=== PATIENT | female | born 1990 | race Caucasian/White ===

== ENCOUNTER 2020-01-22 09:43 | Emergency (ER) | payer MEDICAID, SELFPAY ==
[2020-01-22 09:47] VITALS: BP 158/114; PULSE 108; RESP 17; TEMP 36.6; O2SAT 99; BMI 45.3
--- NOTE | 2020-01-22 10:06 | NURSING ---
NO OLD EKGS
--- NOTE | 2020-01-22 10:10 | RAD_ITS ---
STUDY: X-RAY CHEST REASON FOR EXAM: Female, 29 years old. BACK AND CHEST PAIN SINCE WEDNESDAY -- LEFT ABD PAIN RADIATING UP TO SHOULDER AND NECK STARTING THIS AM TECHNIQUE: Single AP portable view of the chest. COMPARISON: None. FINDINGS: The lungs are clear and expanded. There is no demonstrated pleural abnormality. Normal size heart. Normal mediastinum and henri. Normal visualized pulmonary arteries. Normal visualized aortic arch and descending thoracic aorta. Normal visualized thoracic spine. Normal visualized ribs, clavicles, and shoulders. There is no demonstrated abnormality of the visualized soft tissue structures of the upper abdomen. RAD/Chest 1 View (Portable) IMPRESSION: Normal x-ray examination of the chest. Electronically Signed: Tolu Kern, at 11:05 EST , Service support ,
--- NOTE | 2020-01-22 10:10 | EKG12_ITS ---
Test Reason : CP Blood Pressure : / mmHG Vent. Rate : 082 BPM Atrial Rate : 082 BPM P-R Int : 156 ms QRS Dur : 092 ms QT Int : 370 ms P-R-T Axes : 043 018 014 degrees QTc Int : 432 ms Normal sinus rhythm Normal ECG Confirmed by OLIVE BALES, RAMESH ([id number]), manager editorial MIHAI PADILLA ([id number]) on 01/23/2020 1:02:08 PM Referred By: BB Confirmed By:RAMESH SCHAEFER MD
[2020-01-22 10:32] LABS: Absolute Lymphocyte Count 2.15 X10^3/uL (0.83-4.51); Absolute Neutrophil Count 4.8 X10^3/uL (2.0-7.7); Basophil# 0.03 X10^3/uL; Basophil% 0.4 % (0-1); Eosinophil# 0.14 X10^3/uL; Eosinophils% 1.8 % (0-5); Hematocrit 41.6 % (37-47); Hemoglobin 14.9 g/dL (12.0-15.0); Lymphocyte # 2.15 X10^3/ul (4.0); Lymphocyte % 28.2 % (19-41); Mean Corp Hgb Conc 35.8 g/dL (32-36); Mean Corpuscular Volume 89.3 fL (81-99); Mean Platelet Vol. 9.3 fl (6.2-12.0); Monocyte# 0.44 X10^3/uL; Monocyte% 5.8 % (0-10); NRBC Flagged by Analyzer 0 % (0-5); Neutrophil # 4.84 X10^3/uL (2.7-7.7); Neutrophil % 63.4 % (47-70); Platelet Count 294 K/mm3 (150-450); RBC Distribution Width SD 42.4 fl (35.1-43.9); Red Blood Count 4.66 M/mm3 (4.2-5.4); White Blood Count 7.6 K/mm3 (4.4-11.0)
[2020-01-22] MEDS: Mag Hydrox/Al Hydrox/Simeth 30 ML UDC PO (10:38)
[2020-01-22 10:49] LABS: Anion Gap 6 (5-15); BUN 14 mg/dL (7-18); BUN/Creat Ratio 18.3 RATIO (10-20); Calcium,Total 8.8 mg/dL (8.5-10.1); Chloride 103 mmol/L (98-107); Creatinine, Serum 0.76 mg/dL (0.55-1.02); EST Glomerular Filtration Rate 95 mL/min (>60); Est Glom Filt Rate - Afr Amer 115 mL/min (>60); Estimated Creatinine Clearance 110.18 ml/min; Glucose 118 mg/dL (74-106); Sodium Level 139 mmol/L (136-145)
--- NOTE | 2020-01-22 11:15 | ED.DCSUM_ITS ---
History of Present Illness Chief Complaint: Chest Pain Informant: Patient Onset: Days - 3 Activity at onset: - - States started while she was making dinner Timing: Continuous Quality: Sharp Location: Left Chest - Radiating to left shoulder and down the left upper quadrant in the last day or so. Also feels it in the back. Current Severity: Moderate Maximum Severity: Moderate Worsened By: - - Lying supine, at night. Occasionally worse with breathing. Nonexertional. Relieved By: Nothing Associated Symptoms: Negative for: Nausea, Vomiting, Diaphoresis, Dyspnea, Cough, Fever, Lightheadedness, Palpitations Narrative: Occasionally pleuritic discomfort in the left chest. Has been present all weekend, she now presents on Wednesday with this. Has not tried any medications. She has an IUD that is impregnated with female hormones and is a smoker, but she has no history of DVT or PE, no leg pain or swelling, no recent travel, immobilization, hospitalization, or surgery. - Past Medical History (1) Anxiety Status: Chronic Past Medical History - Allergies and Home Meds Allergies/Adverse Reactions: Allergies Penicillins Allergy (Verified 01/22/20 09:45) Hives Sulfa (Sulfonamide Antibiotics) Allergy (Verified 01/22/20 09:45) Hives Lives: With Family Smoking Status: Current every day smoker - Family History Maternal Family History: Reports: Heart Disease - Congestive heart failure-mother Review of Systems General: Denies: Chills, Fever, Sweats Eyes: Denies: Visual changes - bilaterally, Diplopia ENT: Denies: Bilateral ear pain, Rhinorrhea, Sore throat Cardiovascular: Reports: Chest pain. Denies: Palpitations Respiratory: Denies: Dyspnea, Cough, Dyspnea on exertion Gastrointestinal: Denies: Abdominal pain, Nausea, Vomiting, Diarrhea, Melena, Hematochezia Genitourinary: Denies: Dysuria, Hematuria, Frequency Musculoskeletal: Reports: Back pain, Extremity Pain - Left shoulder. Denies: Swelling Skin: Denies: Rash, Wounds Neurological: Denies: Headache, Weakness, Numbness Physical Exam Vital Signs/Narrative: Vital Signs Temp Pulse Resp BP Pulse Ox 01/22/20 09:47 97.9 F 108 H 17 158/114 H 99 Inital Vital Signs reviewed: Yes General: Well nourished, Well developed, Obese, No Acute Distress - Well- appearing, conversive in full sentences Head: Normocephalic, Atraumatic Eyes: Perrl, EOMI ENT: Moist mucous membranes, No rhinorrhea Neck: Supple, Nontender, No lymphadenopathy, No JVD Cardiovascular: Regular rate, Regular rhythm, No murmurs. Negative for: Tachycardia Respiratory: No distress, CTA bilaterally, Chest nontender Abdomen: Soft, Nontender, Nondistended, Normal bowel sounds Back: Nontender, Normal Inspection Extremities: Nontender, No edema. Negative for: Calf Tenderness Skin: Normal color, No rash, No Trauma Neurological: Alert, Oriented x3, Cranial nerves II-XII grossly intact, Normal Strength, Normal Sensation, Normal Gait Psychological: Normal affect, Normal Mood Diagnostic/Tx/Re-eval Impressions Chest X-Ray 01/22/20 10:10 IMPRESSION: Normal x-ray examination of the chest. Electronically Signed: Tolu Concha, at 11:05 EST , Service support , 01/22/20 10:10 Chest 1 View (Portable) [RAD] Stat Laboratory Results 01/22/20 01/22/20 01/22/20 10:20 10:20 10:20 WBC 7.6 RBC 4.66 Hgb 14.9 Hct 41.6 MCV 89.3 MCH 32.0 MCHC 35.8 RDW Std Deviation 42.4 RDW Coeff of Lance 13.0 Plt Count 294 MPV 9.3 Immature Gran % (Auto) 0.400 Neut % (Auto) 63.4 Lymph % (Auto) 28.2 [place] % (Auto) 5.8 Eos % (Auto) 1.8 Baso % (Auto) 0.4 Absolute Neuts (auto) 4.8 Absolute Lymphs (auto) 2.15 Nucleated RBC % 0 D-Dimer Quant (PE/DVT) <= 0.27 Sodium 139 Potassium 4.0 Chloride 103 Carbon Dioxide 30.0 Anion Gap 6 BUN 14 Creatinine 0.76 Estim Creat Clear Calc 110.18 Est GFR (MDRD) Af Amer 115 Est GFR (MDRD) Non-Af 95 BUN/Creatinine Ratio 18.3 Glucose 118 H Calcium 8.8 Troponin I < 0.015 - Rhythm Strip Rhythm Strip: Sinus Rhythm Rate: 63 Ectopy: None - EKG Initial EKG Interpretation: Sinus Rhythm, No Acute Injury Pattern - Normal EKG Prior: No Prior Treatment: GI Cocktail - With no effect - Medical Decision Making GI cocktail given, it did not change her discomfort, thinking the etiology of her discomfort is esophageal spasm she was given nitroglycerin, and I did add a D-dimer to make sure this was not thromboembolic disease given her risk factors, that returned negative ruling that out acutely for this set of symptoms today. Nitroglycerin did not help at all. Given all of this, my suspicion is that she has pleurisy. We will give her instructions for this, Toradol prior to discharge, and recommend outpatient follow-up if symptoms do not resolve after a week. She is comfortable with that plan. ED Disposition - Plan for ED Patient: Disposition: Home or Assisted Living Diagnosis: Chest pain, unspecified, Pleurisy Instructions: ED Chest Pain Pleurisy Prescriptions: Naproxen [Naprosyn] 500 mg PO BID PRN #20 tab [id number] Referrals: Doctor,Your [STAFF PHYSICIAN] - 1 Week if not improving
[2020-01-22 11:51] LABS: D-Dimer Quantitative (DVT/PE) <= 0.27 FEU/ug/m (0.27-0.49)
[2020-01-22 11:59] VITALS: BP 151/90; PULSE 77
[2020-01-22] MEDS: Nitroglycerin SL (ED/IMG/CATH) 0.4 MG TABLET SUBLINGUAL (11:59)
[2020-01-22] MEDS: Ketorolac 30 MG/ML Syringe IV (13:01)
[2020-01-22 13:03] VITALS: BP 146/83; PULSE 97; RESP 18; O2SAT 98
== END 2020-01-22 13:04 | disposition home or self-care (01) ==
PROVIDERS: Emergency Provider Emergency Medicine
DX: R09.1 Pleurisy (principal); R07.9 Chest pain, unspecified; F41.9 Anxiety disorder, unspecified; E66.9 Obesity, unspecified; F17.200 Nicotine dependence, unspecified, uncomplicated; Z79.899 Other long term (current) drug therapy; Z97.5 Presence of (intrauterine) contraceptive device
CPT/HCPCS: 71045; 80048; 84484; 85025; 85379; 93005; 96374; 99285; A4216

== ENCOUNTER 2020-10-26 10:29 | Emergency (ER) | payer MEDICAID, SELFPAY ==
[2020-10-26 10:31] VITALS: BP 211/111; PULSE 18; RESP 92; TEMP 36.2; O2SAT 97; BMI 41.0
--- NOTE | 2020-10-26 10:43 | RAD_ITS ---
STUDY: X-RAY - RIGHT KNEE REASON FOR EXAM: Female, 30 years old. Injury TECHNIQUE: 4 view(s) of the knee. COMPARISON: None. FINDINGS: Normal visualized distal femur. Normal visualized proximal tibia and fibula. Normal proximal tibiofibular articulation. There is no demonstrated fracture. Normal medial femorotibial compartment. Normal lateral femorotibial compartment. Normal patellofemoral articulation. There is no demonstrated joint effusion. The soft tissue structures are unremarkable. RAD/Knee 4 or More Views IMPRESSION: No evidence of acute osseous injury. Electronically Signed: Ez Call MD at 11:54 EDT Tel , Service support ,
--- NOTE | 2020-10-26 10:43 | RAD_ITS ---
STUDY: X-RAY - PELVIS REASON FOR EXAM: Female, 30 years old. Injury TECHNIQUE: One view of the pelvis was obtained. COMPARISON: None. FINDINGS: There is a non-specific bowel gas pattern. Normal visualized soft tissue structures. Normal bilateral iliac wings, sacroiliac joints and visualized sacrum. Normal visualized bilateral superior and inferior pubic rami. Normal pubic symphysis. Normal ischial tuberosities. Normal visualized right femoral head. Normal right acetabulum. Normal right hip joint. Normal visualized left femoral head. Normal left acetabulum. Normal left hip joint. RAD/Pelvis 1 or 2 Views IMPRESSION: Normal x-ray examination of the pelvis. Electronically Signed: Ez Call MD at 11:55 EDT Tel , Service support ,
--- NOTE | 2020-10-26 10:43 | EX.ED.GENINJ ---
HPI History of Present Illness Chief Complaint: Back Informant: patient Narrative Narrative: 30-year-old female notes that several days ago she slipped on some water and fell down onto her bent right knee. She had immediate pain in the knee and notes now whenever she bends it she feels a grinding sensation. She states about 30 minutes later she began to feel a pain near her right SI area. That pain has persisted and seems to radiate up to her middle back. Painful range of motion. No bowel or bladder dysfunction. No red flag history. PFSH PFS Medical History (Updated 10/26/20 @ 11:21 by Sunni Ellsworth) Anxiety Depression Home Medications cyclobenzaprine 10 mg PO TID PRN #20 tablet 10/26/20 [Rx Last Taken Unknown] hydrocodone-acetaminophen 1 tab PO Q6H PRN PRN 3 Days #10 tablet 10/26/20 [Rx Last Taken Unknown] naproxen 500 mg PO BID #14 tab 10/26/20 [Rx Last Taken Unknown] Allergy/AdvReac Type Severity Reaction Status Date / Time Penicillins Allergy Hives Verified 10/26/20 10:30 Sulfa (Sulfonamide Allergy Hives Verified 10/26/20 10:30 Antibiotics) Social History (Updated 10/26/20 @ 10:[address] Jairo Abraham, ) Smoking Status: Current every day smoker tobacco type: cigarettes substance use type: does not use ROS ROS ED Constitutional Constitutional ED: Denies chills or weight loss Eyes Eyes: Denies change in vision or diplopia ENT ENT ED: Denies ear pain, rhinorrhea or sore throat Cardiovascular Cardiovascular: Denies chest pain, orthopnea, palpitations or racing heartbeat Respiratory/Chest Respiratory/Chest: Denies cough, dyspnea or orthopnea Gastrointestinal Gastrointestinal: Denies abdominal pain, diarrhea, nausea or vomiting Genitourinary Genitourinary ED: Denies dysuria, hematuria or urinary frequency Musculoskeletal Musculoskeletal: Reports back pain and other Details: See history of present illness ; Denies arthralgias or myalgias Integumentary Denies abscess or rash Neurologic Neurologic: Denies headache(s) or weakness Psychiatric Psychiatric: Denies anxiety, depression, suicidal ideation or suicidal thoughts Endocrine Endocrinology: Denies polydipsia, polyphagia or polyuria Allergic/Immunologic Allergic/Immunologic ED: Denies mouth swelling, tongue swelling or urticaria EXAM Physical Exam Const Vital Signs: 10/26/20 10:31 10/26/20 11:19 Temperature 97.1 F L Temperature Source Temporal Pulse Rate 18 L 84 Respiratory Rate 92 H 16 Blood Pressure 211/111 H 176/101 H Blood Pressure Mean 144 126 Pulse Ox 97 96 Oxygen Delivery Method Room Air Room Air Positive well nourished and well developed General Appearance ED: well developed HEENT Reports normocephalic, head/scalp atraumatic and moist mucous membranes Eyes PERRL and EOMs intact bilaterally Neck no lymphadenopathy, supple and no JVD Resp normal respiratory effort and clear to auscultation bilaterally Cardio regular rate, regular rhythm and no murmurs GI normal to inspection, nondistended, normoactive bowel sounds and non-tender Palpation: soft Back/Spine no CVA tenderness and normal ROM Back/Spine Narrative: Patient has tenderness to palpation over the lumbar paraspinal musculature on the right. She has focal tenderness at the right SI joint. Extremity Extremity Narrative: Patient has tenderness on the underside of her patella. There is a grinding sensation when I take her knee into flexion and extension. General Extremety ED: Negative for edema General Extremity: Negative for edema Neuro oriented x3 and CN's II-XII intact bilaterally Sensorium / Orientation: alert Motor Exam: strength 5/5 throughout Psych mental status grossly normal Mood & Affect: Negative for depressed or tearful Skin no rashes or lesions noted and no wounds MDM MDM MDM Narrative Medical decision making narrative: My interpretation of the plain films of the right knee and pelvis is no acute fracture. I believe the patient has inflammation of the patella resulting in this clinic. She may have underlying patellofemoral syndrome we will have to see. The back most likely is muscular spasm and inflammation at the SI joint. Would recommend heat gentle stretching anti-inflammatories and muscle relaxants. Patient noted to be hypertension and I recommend that she follow-up with primary care after she takes her blood pressure several days. Discharge Plan Triage Chief Complaint: Back ED Provider: Jairo Abraham Dx/Rx/DC Orders Clinical Impression: SI (sacroiliac) joint inflammation, Contusion of right patella, Lumbar paraspinal muscle spasm, Hypertension Instructions: ED Back Sprain/Strain, ED Hypertension, To Be Confirmed Prescriptions: New cyclobenzaprine [cyclobenzaprine] 10 MG tablet 10 mg PO TID PRN (Reason: Muscle Spasm) Qty: 20 RF: 0 hydrocodone-acetaminophen [hydrocodone-acetaminophen] 1 TABLET tablet 1 tab PO Q6H PRN PRN (Reason: Pain) 3 Days Qty: 10 RF: 0 naproxen 500 MG tablet 500 mg PO BID Qty: 14 RF: 0 Primary Care Provider: Care Physician,No Primary Referrals: Evita Vigil DO [STAFF PHYSICIAN] - 1-2 Weeks Care Physician,No Primary [Primary Care Provider] - Activity Restrictions/Additional Instructions: You may have underlying patellofemoral syndrome. If the grinding that you feel does not resolve after the cartilage inflammation is resolved you may need some physical therapy to resolve the issue. You were noted to have elevated blood pressures today. I would recommend you take your blood pressure several times over the next 1 to 2 weeks and take those measurements with you to primary care. Longstanding untreated hypertension can have significant deleterious effects on your health. Disposition Disposition: Home, Self Care
[2020-10-26 11:19] VITALS: BP 176/101; PULSE 84; RESP 16; O2SAT 96
[2020-10-26 12:13] VITALS: BP 159/104; PULSE 68; RESP 12; O2SAT 94
== END 2020-10-26 12:13 | disposition home or self-care (01) ==
PROVIDERS: Emergency Provider Emergency Medicine
DX: M46.1 Sacroiliitis, not elsewhere classified (principal); S80.01XA Contusion of right knee, initial encounter; M62.830 Muscle spasm of back; W01.0XXA Fall on same level from slipping, tripping and stumbling without subsequent striking against object, initial encounter; Y93.9 Activity, unspecified; Y92.9 Unspecified place or not applicable; Y99.9 Unspecified external cause status; I10 Essential (primary) hypertension; F17.210 Nicotine dependence, cigarettes, uncomplicated; Z79.1 Long term (current) use of non-steroidal anti-inflammatories (NSAID); Z79.899 Other long term (current) drug therapy
CPT/HCPCS: 72170; 73564; 99282

== ENCOUNTER → 2020-12-10 | Outpatient (CLI) | payer MEDICAID, SELFPAY ==
[2020-12-10 16:27] LABS: hCG Titer Quant., Serum < 1 mIU/mL (1-3)
== END | disposition home or self-care (01) ==
LOC: WOBLAB 13:43
PROVIDERS: Visit Provider Obstetrics & Gynecology
DX: N93.9 Abnormal uterine and vaginal bleeding, unspecified (principal)
CPT/HCPCS: 36415; 84702

== ENCOUNTER 2020-12-24 10:35 | Emergency (ER) | payer MEDICAID, SELFPAY ==
[2020-12-24 10:36] VITALS: BP 198/106; PULSE 94; RESP 18; TEMP 36.4; O2SAT 98; BMI 47.9
--- NOTE | 2020-12-24 10:39 | RAD_ITS ---
HISTORY: fall. TECHNIQUE: XR Spine Thoracic 2 Views. # of images incl. paperwork: 3. COMPARISON: Chest 01/22/2020. FINDINGS: VERTEBRAE: Vertebral body heights maintained. No acute fracture identified. VERTEBRAL ALIGNMENT: No significant anterior or posterior subluxation. INTERVERTEBRAL DISCS: Disc spaces preserved. SOFT TISSUES: Unremarkable paraspinal soft tissues. RAD/Thoracic Spine 2 Views IMPRESSION: No acute fracture or dislocation identified in the thoracic spine. at 1109 Reported and signed by: Sondra Nair MD Electronically Signed: Sondra Nair MD at 11:08 EDT Tel , Service support ,
--- NOTE | 2020-12-24 11:01 | RAD_ITS ---
HISTORY: fall. TECHNIQUE: XR Spine Cervical 2 or 3 Views. # of images incl. paperwork: 4. COMPARISON: None. FINDINGS: VERTEBRAE: No acute fracture identified. ALIGNMENT: No significant anterior or posterior subluxation.Straightening of the cervical lordosis. INTERVERTEBRAL DISCS: Disc heights maintained. SOFT TISSUES: No prevertebral soft tissue thickening. RAD/Cerv Spine 2 or 3 Views IMPRESSION: No acute fracture or dislocation identified in the cervical spine. at 1109 Reported and signed by: Sondra Nair MD Electronically Signed: Sondra Nair MD at 11:07 EDT Tel , Service support ,
--- NOTE | 2020-12-24 13:07 | EDS_ITS ---
HPI HPI - Fall History of Present Illness Chief Complaint: Fall Narrative Narrative: Patient presents with posterior back pain after mechanical fall while tripping over her child's toys. No head injury no loss of consciousness. She has no weakness or paresthesias or any other injuries. [facility] Medical History (Updated 12/24/20 @ 13:[address] Ady Cristobal MD) Anxiety Depression Home Medications cyclobenzaprine 10 mg PO TID PRN #20 tablet 10/26/20 [Rx Last Taken Unknown] hydrocodone-acetaminophen 1 tab PO Q6H PRN PRN 3 Days #10 tablet 10/26/20 [Rx Last Taken Unknown] naproxen 500 mg PO BID #14 tab 10/26/20 [Rx Last Taken Unknown] Allergy/AdvReac Type Severity Reaction Status Date / Time Penicillins Allergy Hives Verified 12/24/20 10:38 Sulfa (Sulfonamide Allergy Hives Verified 12/24/20 10:38 Antibiotics) Social History (Updated 10/26/20 @ 10:[address] Jairo Abraham, DO) Smoking Status: Current every day smoker tobacco type: cigarettes substance use type: does not use ROS ROS ED ROS Narrative Social: Noncontributory Medications: Reviewed Past medical history: Reviewed Review of systems General: Patient has no head injury or loss of consciousness HEENT: No facial injury Neck: Some lower neck pain Cardiovascular: Patient denies any chest pain or palpitations Chest wall: No chest wall contusions Respiratory: There is no shortness of breath GI: There is no nausea vomiting diarrhea or abdominal pain, no abdominal wall contusions Skin: No lacerations or abrasions Neurological: Patient has no memory loss, confusion, or any focal weakness Psychiatric: No recent behavioral changes Back: Upper back pain. Musculoskeletal: No extremity injury All other systems are reviewed and normal EXAM Physical Exam Narrative Exam Narrative: Physical exam Vitals reviewed General: Does not appear in significant distress, no obvious injuries HEENT: No facial injury Head: No head injury Eyes: Extraocular movements intact Neck: No obvious C-spine tenderness there may be some C7 tenderness but most of the tenderness is in the thoracic spine. Full range of motion. Heart: Regular rate normal pulses Chest wall: No chest wall pain Lungs clear lungs bilaterally with normal inspiration and expiration without tachypnea GI: Abdomen is soft and nontender there is no mass no guarding no abdominal wall contusion : Stable pelvis Musculoskeletal: Moves all extremities without any signs of trauma Back: There is upper thoracic tenderness some in the thoracic spine mostly in the paraspinal muscle region. Skin: No abrasions or laceration Neurological: Patient is alert and oriented with no focal deficits Const Vital Signs: 12/24/20 10:36 12/24/20 11:25 Temperature 97.6 F L Temperature Source Temporal Pulse Rate 94 Respiratory Rate 18 Respiratory Depth Normal Respiratory Pattern Normal Blood Pressure 198/106 H Blood Pressure Mean 136 Pulse Ox 98 Oxygen Delivery Method Room Air MDM MDM MDM Narrative Medical decision making narrative: Patient has normal x-rays, she appears well I will discharge her with reassurance. Radiography Diagnostic Testing: Clinical Impression(s) from Imaging Studies Thoracic Spine X-Ray 12/24/20 10:39 IMPRESSION: No acute fracture or dislocation identified in the thoracic spine. at 1109 Reported and signed by: Sondra Nair MD Electronically Signed: Sondra Nair MD at 11:08 EDT Tel , Service support , Cervical Spine X-Ray 12/24/20 11:01 IMPRESSION: No acute fracture or dislocation identified in the cervical spine. at 1109 Reported and signed by: Sondra Nair MD Electronically Signed: Sondra Nair MD at 11:07 EDT Tel , Service support , Discharge Plan Triage Chief Complaint: Fall ED Provider: Ady Cristobal Dx/Rx/DC Orders Clinical Impression: Fall, Back contusion Instructions: ED Back Contusion Prescriptions: No Action cyclobenzaprine [cyclobenzaprine] 10 MG tablet 10 mg PO TID PRN (Reason: Muscle Spasm) Qty: 20 RF: 0 hydrocodone-acetaminophen [hydrocodone-acetaminophen] 1 TABLET tablet 1 tab PO Q6H PRN PRN (Reason: Pain) 3 Days Qty: 10 RF: 0 naproxen 500 MG tablet 500 mg PO BID Qty: 14 RF: 0 Primary Care Provider: Care Physician,No Primary Referrals: Care Physician,No Primary [Primary Care Provider] - 2 Days Disposition Disposition: Home, Self Care
== END 2020-12-24 13:17 | disposition home or self-care (01) ==
PROVIDERS: Emergency Provider Emergency Medicine
DX: S20.229A Contusion of unspecified back wall of thorax, initial encounter (principal); W18.09XA Striking against other object with subsequent fall, initial encounter; Y93.9 Activity, unspecified; Y92.9 Unspecified place or not applicable; Y99.9 Unspecified external cause status; F17.210 Nicotine dependence, cigarettes, uncomplicated
CPT/HCPCS: 72040; 72070; 99282

== ENCOUNTER 2021-01-06 10:36 | Emergency (ER) | payer MEDICAID, SELFPAY ==
[2021-01-06 10:36] VITALS: BP 195/123; PULSE 90; RESP 18; TEMP 36.6; O2SAT 97; BMI 47.7
--- NOTE | 2021-01-06 11:34 | ED.VIS.DENTA ---
HPI History of Present Illness Chief Complaint: Dental Informant: patient Onset/Context/Timing Onset: Weeks Context: Gradual Onset Timing: Continuous Current Severity: Mild Maximum Severity: Mild Relieved by: NSAIDs Associated Symptoms Assocated Symptom - Dental: cold sensitivity; Negative for fever, jaw swelling or face swelling Narrative Narrative: 30-year-old female history of anxiety and depression. States she has had right lower jaw molar pain for 2 weeks. Has seen a dentist in [place]. She is a scheduled resection or extraction of her right lower molar this coming Wednesday. They have placed her on clindamycin since last Wednesday. She just complaining of pain. Denies any trouble swallowing or breathing. No significant past medical history. Prior similar symptoms: Yes Recent Illness/Hospitalization: No PFSH PFSH Medical History Anxiety Depression Home Medications cyclobenzaprine 10 mg PO TID PRN #20 tablet 10/26/20 [Rx Last Taken Unknown] hydrocodone-acetaminophen 1 tab PO Q6H PRN PRN 3 Days #10 tablet 10/26/20 [Rx Last Taken Unknown] naproxen 500 mg PO BID #14 tab 10/26/20 [Rx Last Taken Unknown] Allergy/AdvReac Type Severity Reaction Status Date / Time Penicillins Allergy Hives Verified 12/24/20 10:38 Sulfa (Sulfonamide Allergy Hives Verified 12/24/20 10:38 Antibiotics) Social History Smoking Status: Current every day smoker tobacco type: cigarettes substance use type: does not use ROS ROS ED ROS Narrative Denies recent illness. Review of Systems ROS Unobtainable: Denies due to encephalopathy Constitutional Constitutional ED: Denies fever(s) Eyes Eyes: Denies change in vision ENT ENT ED: Denies ear pain Cardiovascular Cardiovascular: Denies chest pain Respiratory/Chest Respiratory/Chest: Denies dyspnea Gastrointestinal Gastrointestinal: Denies abdominal pain Genitourinary Genitourinary ED: Denies dysuria Musculoskeletal Musculoskeletal: Denies myalgias Integumentary Denies rash Neurologic Neurologic: Denies headache(s) Psychiatric Psychiatric: Denies depression Endocrine Endocrinology: Denies polyuria Hematologic/Lymphatic Hematologic/Lymphatic: Denies easy bruising Allergic/Immunologic Allergic/Immunologic ED: Denies urticaria EXAM Physical Exam Narrative Exam Narrative: 30-year-old female no acute distress vital signs stable blood pressure elevated due to pain 129/123. H EENT exam right lower molar the last tooth is fractured. Is tender to palpation. There is really no significant swelling or redness. I do not see any obvious abscess. There is tenderness to palpation. There is no significant facial swelling. She has no trouble swallowing or breathing. Underneath her tongue is normal. Neck nontender no lymphadenopathy. Lungs are clear. Heart regular rate and rhythm. Otherwise exam unremarkable. Const Vital Signs: 01/06/21 10:36 Temperature 98 F Temperature Source Temporal Pulse Rate 90 Respiratory Rate 18 Blood Pressure 195/123 H Blood Pressure Mean 147 Pulse Ox 97 Oxygen Delivery Method Room Air Positive well nourished, well developed and obese; Negative for cachectic, contractures or unkempt General Appearance ED: well developed and NAD; Negative for unkempt, cachectic or contractures Nutritional Appearance: obese; Negative for cachectic HEENT HEENT Narrative: Right lower molar fractured. Tender palpation. No abscess. No trismus. Floor the mouth normal. No significant swelling to the face. tenderness; Negative for trauma Eyes PERRL and EOMs intact bilaterally Neck no lymphadenopathy, supple and no JVD General: normal visual inspection; Negative for anterior neck swelling or tenderness Lymph Lymphatic: no lymphadenopathy noted; Negative for lymphadenopathy Chest Wall inspection of chest normal and palpation of chest normal Resp normal respiratory effort, no retractions and clear to auscultation bilaterally Cardio regular rate, regular rhythm, S1 normal heart sound, S2 normal heart sound and no murmurs GI normal to inspection, nondistended, normoactive bowel sounds, non-tender, non-distended and no masses Palpation: soft Back/Spine no CVA tenderness General Back: Negative for CVA tenderness Thoracic Spine / Upper Back: Negative for thoracic spinal tenderness or paraspinal muscle tenderness Extremity normal to inspection and no joint enlargement General Extremety ED: Negative for edema General Extremity: Negative for edema Neuro oriented x3, CN's II-XII intact bilaterally, moves all extremities and no focal motor deficits Sensorium / Orientation: alert, oriented to person, oriented to place and oriented to time Motor Exam: strength 5/5 throughout Psych mental status grossly normal Appearance: Negative for unkempt Skin no rashes or lesions noted and no wounds MDM MDM MDM Narrative Medical decision making narrative: Patient clinically looks well. Antibiotic has controlled any infection in the tooth. There is no significant swelling. Patient is on Motrin for pain. I will give her 2 [place] here but explained to her that I would not write her a prescription for narcotics for dental pain. She has a scheduled appointment this Wednesday with her dentist to have her right lower molar extracted. Discharge Plan Triage Chief Complaint: Dental ED Provider: Severo Dc Dx/Rx/DC Orders Clinical Impression: Pain, dental Instructions: ED Dental Pain Prescriptions: No Action cyclobenzaprine [cyclobenzaprine] 10 MG tablet 10 mg PO TID PRN (Reason: Muscle Spasm) Qty: 20 RF: 0 hydrocodone-acetaminophen [hydrocodone-acetaminophen] 1 TABLET tablet 1 tab PO Q6H PRN PRN (Reason: Pain) 3 Days Qty: 10 RF: 0 naproxen 500 MG tablet 500 mg PO BID Qty: 14 RF: 0 Primary Care Provider: Care Physician,No Primary Referrals: Care Physician,No Primary [Primary Care Provider] - Activity Restrictions/Additional Instructions: Ice to your jaw and Motrin and Tylenol for pain. Follow-up with your dentist on Wednesday. Finish your antibiotic. Disposition Disposition: Home, Self Care
[2021-01-06] MEDS: HYDROcodone Bitartrate/Apap 5/325 Tablet PO (11:41)
== END 2021-01-06 11:45 | disposition home or self-care (01) ==
LOC: ED 11:42
PROVIDERS: Emergency Provider Emergency Medicine
DX: K08.89 Other specified disorders of teeth and supporting structures (principal); S02.5XXA Fracture of tooth (traumatic), initial encounter for closed fracture; X58.XXXA Exposure to other specified factors, initial encounter; Y92.9 Unspecified place or not applicable; Y99.9 Unspecified external cause status; Y93.9 Activity, unspecified; R03.0 Elevated blood-pressure reading, without diagnosis of hypertension; F32.A Depression, unspecified; F41.9 Anxiety disorder, unspecified; F17.210 Nicotine dependence, cigarettes, uncomplicated; Z79.1 Long term (current) use of non-steroidal anti-inflammatories (NSAID)
CPT/HCPCS: 99283

== ENCOUNTER 2021-05-15 08:56 | Emergency (ER) | payer MEDICAID, SELFPAY ==
[2021-05-15 08:57] VITALS: BP 171/104; PULSE 98; RESP 14; TEMP 36.2; O2SAT 100; BMI 45.6
--- NOTE | 2021-05-15 09:12 | US_ITS ---
STUDY: FIRST TRIMESTER OBSTETRICAL ULTRASOUND REASON FOR EXAM: Female, 31 years old 7 wk preg, pain and bleed LMP: 03/31/2021. TECHNIQUE: Transvaginal TECHNICAL QUALITY: Adequate. PRIOR ULTRASOUND: None. FINDINGS: There is visualization of a single gestational sac in a normal intrauterine position. The mean sac diameter (MSD) measures 7.1 mm, indicating an estimated gestational age (EGA) of 5 weeks, 3 days. The gestational sac shape is within normal limits. There is no demonstrated yolk sac. The placenta is non-visualized. There is no demonstrated embryo ( pole). The estimated gestation age (EGA) by LMP is 6 weeks, 3 days. The estimated date of delivery (ÁNGEL) by LMP is 01/05/2022. The estimated gestation age (EGA) by US is 5 weeks, 3 days. The estimated date of delivery (ÁNGEL) by US is 01/12/2022. The uterus measures 9.3 cm x 5.9 cm x 5.3 cm. There is no demonstrated uterine fibroid. The cervix is closed. Small amount of fluid is seen within the endocervical canal. There is a 5 mm x 6 mm x 4 mm nabothian cyst. The right ovary measures 5.3 cm x 4 cm x 2.9 centimeters. There is a 2.4 cm x 2.5 cm x 2 cm cyst. There is no visualized right adnexal mass or complex lesion. The left ovary measures 4.2 cm x 3 cm x 2.3 cm. There is a 2.5 cm x 1.7 cm x 1.4 cm cyst. There is no visualized left adnexal mass or complex lesion. There is no fluid in the cul de sac. US/Transvaginal w/Preg US IMPRESSION: Intrauterine gestational sac with a mean gestational age of 5 weeks and 3 days. No yolk sac or pole is seen at this time. Bilateral ovarian cysts. Electronically Signed: Tolu Kern MD at 11:55 EST ,
--- NOTE | 2021-05-15 09:13 | EDS_ITS ---
HPI HPI - Female History of Present Illness Chief Complaint: Vag Bld, Preg Narrative Narrative: Patient presents with pelvic pain and vaginal bleeding. She tells me she is 7 weeks . She also tells me she is Rh- and she has had RhoGam in the past. She is G7, P2 with 4 miscarriages and currently at 7 weeks. She has no fever or chills. She is denying dysuria or hematuria. No upper abdominal pain no back pain or flank pain. [facility] Medical History (Updated 05/15/21 @ 12:[address] Ady Cristobal MD) Anxiety Depression Hypertension Home Medications cyclobenzaprine 10 mg PO TID PRN #20 tablet 10/26/20 [Rx Last Taken Unknown] hydrocodone-acetaminophen 1 tab PO Q6H PRN PRN 3 Days #10 tablet 10/26/20 [Rx Last Taken Unknown] naproxen 500 mg PO BID #14 tab 10/26/20 [Rx Last Taken Unknown] cephalexin 500 mg PO Q6 #40 cap 05/15/21 [Rx Last Taken Unknown] Allergy/AdvReac Type Severity Reaction Status Date / Time Penicillins Allergy Hives Verified 05/15/21 08:59 Sulfa (Sulfonamide Allergy Hives Verified 05/15/21 08:59 Antibiotics) Social History Smoking Status: Current every day smoker tobacco type: cigarettes substance use type: does not use ROS ROS ED ROS Narrative Past medical history: Reviewed Medications: Reviewed Social history: Noncontributory Review of systems: All systems negative except as indicated General: No fever Eyes: No visual changes ENT: No upper airway congestion, normal voice Neck: No neck pain Cardiovascular: No chest pain Respiratory: No shortness of breath or cough Gastrointestinal: Pelvic pain as in HPI Genitourinary: No dysuria. Vaginal bleeding as in HPI Musculoskeletal: Denies myalgias no difficulty with ambulation Skin: No rash Neurological: No memory loss, confusion or any focal weakness Psych: No recent behavioral changes Hematologic: No easy bleeding or easy bruising EXAM Physical Exam Narrative Exam Narrative: Physical exam General: Well nourished, Well developed, No Acute Distress Head: Normocephalic, Atraumatic Eyes: Conjunctiva not pale ENT: Moist mucous membranes Neck: Supple, Nontender, No lymphadenopathy Cardiovascular: Regular rate, Regular rhythm Respiratory: No distress, CTA bilaterally Abdomen: Soft, slight suprapubic pain. : Deferred Back: Nontender, Normal Inspection. Negative for: CVA tenderness Extremities: Nontender, No edema Skin: Normal color, No rash Neurological: Alert, Normal Strength, Normal Sensation Psychological: Normal affect Const Vital Signs: 05/15/21 08:57 Temperature 97.2 F L Temperature Source Temporal Pulse Rate 98 Respiratory Rate 14 Blood Pressure 171/104 H Blood Pressure Mean 126 Pulse Ox 100 Oxygen Delivery Method Room Air MDM MDM MDM Narrative Medical decision making narrative: Patient has an intrauterine gestational sac, however heartbeat is not seen, she is given RhoGam in the ED. She can follow-up with her OB for repeat quant and evaluation in 2 days, if anything changes however she is to return. There is evidence of a slight UTI which I will treat. Lab Data Labs: Laboratory Results - last 24 hr 05/15/21 05/15/21 05/15/21 09:20 09:30 09:30 HCG, Quant 1820 H Urine Color Yellow Urine Clarity Clear Urine pH 7.0 Ur Specific [place] 1.010 Urine Protein Negative Urine Glucose (UA) Normal Urine Ketones Negative Urine Occult Blood 25 H Urine Nitrite Negative Urine Bilirubin Negative Urine Urobilinogen Normal Ur Leukocyte Esterase 500 H Urine RBC 0-5 SEEN Urine WBC 10-25 SEEN Ur Squamous Epith Cells 5-10 SEEN Urine Bacteria RARE Urine Mucus 0 SEEN Blood Type O NEGATIVE Antibody Screen NEGATIVE Radiography Diagnostic Testing: Clinical Impression(s) from Imaging Studies Obstetrics Ultrasound 05/15/21 09:12 IMPRESSION: Intrauterine gestational sac with a mean gestational age of 5 weeks and 3 days. No yolk sac or pole is seen at this time. Bilateral ovarian cysts. Electronically Signed: Tolu Kern MD at 11:55 EST , Discharge Plan Triage Chief Complaint: Vag Bld, Preg ED Provider: Ady Cristobal Dx/Rx/DC Orders Clinical Impression: Miscarriage, threatened, early , UTI in Instructions: Urinary Tract Infections in Women, ED Possible Miscarriage ... Prescriptions: New cephalexin 500 mg capsule 500 mg PO Q6 Qty: 40 RF: 0 No Action cyclobenzaprine [cyclobenzaprine] 10 MG tablet 10 mg PO TID PRN (Reason: Muscle Spasm) Qty: 20 RF: 0 hydrocodone-acetaminophen [hydrocodone-acetaminophen] 1 TABLET tablet 1 tab PO Q6H PRN PRN (Reason: Pain) 3 Days Qty: 10 RF: 0 naproxen 500 MG tablet 500 mg PO BID Qty: 14 RF: 0 Primary Care Provider: Care Physician,No Primary Referrals: Harpal Dodd MD [STAFF PHYSICIAN] - 2 Days Care Physician,No Primary [Primary Care Provider] - Disposition Disposition: Home, Self Care
[2021-05-15 09:25] LABS: Mucous, Urine 0 SEEN /hpf (<or=2+)
[2021-05-15 09:26] LABS: Color, Urine Yellow (Yellow); Glucose, Dipstick Normal (Normal); Ketone-Dipstick Negative (Negative); Leukocyte Esterase-Dipstick 500 /ul (Negative); Nitrite-Dipstick Negative (Negative); Occult Blood-Urine 25 /ul (Negative); Protein-Dipstick Negative (Negative); Urine Bilirubin Dipstick Negative (Negative); Urine Clarity Clear (Clear); Urine Urobilinogen Normal (Normal)
[2021-05-15 09:33] LABS: Bacteria RARE /hpf (None Seen); Red Blood Cells-Urine 0-5 SEEN /hpf (0-5); Squamous Epithelial Cells - UA 5-10 SEEN /hpf (5-10); White Blood Cells 10-25 SEEN /hpf (0-5)
[2021-05-15 10:45] LABS: hCG Titer Quant., Serum 1820 mIU/mL (1-3)
--- NOTE | 2021-05-15 12:35 | ED.RN ---
Patients Rogham lot number not able to scan at this time. Patients blood product ID has been verified at blood bank and also with STEVEN Villagomez. Patient was administered rogham at 1233 in right ventrogluteal. Patient tolerated procedure well.
[2021-05-15 13:09] VITALS: RESP 18
== END 2021-05-15 13:16 | disposition home or self-care (01) ==
PROVIDERS: Emergency Provider Emergency Medicine; Visit Provider Emergency Medicine
DX: O20.0 Threatened abortion (principal); O23.41 Unspecified infection of urinary tract in pregnancy, first trimester; O26.891 Other specified pregnancy related conditions, first trimester; R10.2 Pelvic and perineal pain; F17.210 Nicotine dependence, cigarettes, uncomplicated; O99.331 Smoking (tobacco) complicating pregnancy, first trimester; Z3A.01 Less than 8 weeks gestation of pregnancy
CPT/HCPCS: J2790; 76817; 81001; 84702; 86850; 86900; 86901; 90384; 99283

== ENCOUNTER 2021-05-25 10:49 | Emergency (ER) | payer MEDICAID, SELFPAY ==
[2021-05-25 10:49] VITALS: BP 176/104; PULSE 100; RESP 16; TEMP 36.6; O2SAT 97; BMI 46.9
--- NOTE | 2021-05-25 11:12 | EDS_ITS ---
HPI History of Present Illness Chief Complaint: Cough Informant: patient Narrative Narrative: Patient presents with nonproductive cough for a few days. She states she is about 7 weeks . She is not having any pelvic symptoms. She quit smoking 2 weeks ago. She has had a little cough since then. It increased over the last few days because she has been cleaning out her father's house that evidently had black mold. She and her also live in a basement apartment and they get mold in that area. The cough does increase when she gets to her apartment. She coughs up clear material only. No thick or colored sputum. No blood. No chest pain. She is not actually short of breath. She does not have a history of any chronic pulmonary disease. No asthma. She has not been wheezing. [facility] Medical History Anxiety Depression Hypertension Home Medications cephalexin 500 mg PO Q6 #40 cap 05/15/21 [Rx Last Taken Unknown] labetalol 100 mg PO BID #60 tab 05/25/21 [Rx Last Taken Unknown] no.144-folic acid [] 2 tab PO DAILY #60 tab 05/25/21 [Rx Last Taken Unknown] Allergy/AdvReac Type Severity Reaction Status Date / Time Penicillins Allergy Hives Verified 05/25/21 10:51 Sulfa (Sulfonamide Allergy Hives Verified 05/25/21 10:51 Antibiotics) Social History Smoking Status: Current every day smoker tobacco type: cigarettes substance use type: does not use ROS ROS ED Constitutional Constitutional ED: Denies chills or fever(s) ENT ENT ED: Reports rhinorrhea and sore throat Cardiovascular Cardiovascular: Denies chest pain Respiratory/Chest Respiratory/Chest: Reports cough and other Details: Small amount of clear phlegm only. ; Denies dyspnea Gastrointestinal Gastrointestinal: Denies abdominal pain, diarrhea, nausea or vomiting Genitourinary Genitourinary ED: Denies dysuria, hematuria or urinary frequency Musculoskeletal Musculoskeletal: Denies myalgias Integumentary Denies rash Neurologic Neurologic: Denies headache(s) Endocrine Endocrinology: Denies polydipsia or polyuria Allergic/Immunologic Allergic/Immunologic ED: Denies mouth swelling or urticaria EXAM Physical Exam Const Vital Signs: 05/25/21 10:49 Temperature 97.8 F Temperature Source Temporal Pulse Rate 100 Respiratory Rate 16 Blood Pressure 176/104 H Blood Pressure Mean 128 Pulse Ox 97 Oxygen Delivery Method Room Air Positive well nourished, well developed and obese General Appearance ED: well developed and NAD; Negative for cyanotic or diaphoretic Nutritional Appearance: obese HEENT Reports moist mucous membranes; Denies dry mucous membranes HEENT Narrative: Mild pharyngeal erythema but no exudate. Mouth ED: No dry mucous membranes Mouth: No dry mucous membranes Eyes General Eye ED: Negative for pale conjunctiva or scleral icterus Neck no JVD Resp normal respiratory effort and clear to auscultation bilaterally Resp Narrative: The breast will occasionally make a cough occur. But there is no wheezing or rhonchi. No pain with a deep breath. Effort and Inspection: Negative for pain with movement Auscultation: Negative for rales, rhonchi or wheezes Cardio regular rate, regular rhythm and no murmurs GI normal to inspection, nondistended, normoactive bowel sounds and non-tender Palpation: soft Back/Spine no CVA tenderness Extremity normal to inspection General Extremety ED: Negative for tenderness Neuro Sensorium / Orientation: alert Psych mental status grossly normal Skin no rashes or lesions noted and no wounds MDM MDM MDM Narrative Medical decision making narrative: Patient's lungs are clear. She is not dyspneic or hypoxic. There is been no fever. She is not bringing up any sputum. She has multiple reasons to be having a nonproductive cough. She quit smoking, lives in a basement and has been cleaning out a mary area that also has mold. I do not think x-rays needed. I do not think antibiotics or steroids are needed. I think this should be self-limited. Certainly if she develops wheezing, sputum production, fevers or other issues we may need to reassess. I will also write for some vitamins. Patient has not yet on these and she will see her physician for about 5 days. I rechecked her blood pressure. Is about 160/100. She states every time she has been she has been on blood pressure medicines the entire time. Since she is only 7 weeks I do not think this represents preeclampsia. She seemed to recognize labetalol as a medicine but was not sure. I will get her started on this. She has an appointment in 5 days. I will also get her the vitamins. Patient has called her brothers and others that were help cleaning out her father's house. They all have the same dry cough. I have encouraged the patient to either not do cleaning there to wear a significant mask such as an N95. She states her father is a hoarder and there is dust, insulation, cat dander and the lot of potential exposures. Discharge Plan Triage Chief Complaint: Cough ED Provider: Benji Vazquez Dx/Rx/DC Orders Clinical Impression: Cough, Dust exposure, Elevated blood pressure reading Instructions: ED Cough Chronic Uncertain Cause Adult Prescriptions: New 400 mcg tablet,chewable 2 tab PO DAILY Qty: 60 RF: 0 labetalol 100 mg tablet 100 mg PO BID Qty: 60 RF: 0 No Action cephalexin 500 mg capsule 500 mg PO Q6 Qty: 40 RF: 0 Primary Care Provider: Care Physician,No Primary Referrals: Care Physician,No Primary [Primary Care Provider] - Activity Restrictions/Additional Instructions: See your OB physician as scheduled this Wednesday. Disposition Disposition: Home, Self Care
[2021-05-25 12:17] VITALS: BP 150/93
[2021-05-25 12:18] VITALS: BP 150/93; PULSE 74
== END 2021-05-25 12:23 | disposition home or self-care (01) ==
PROVIDERS: Emergency Provider Emergency Medicine; Visit Provider Emergency Medicine
DX: O99.891 Other specified diseases and conditions complicating pregnancy (principal); R05.9 Cough, unspecified; O10.911 Unspecified pre-existing hypertension complicating pregnancy, first trimester; Z3A.01 Less than 8 weeks gestation of pregnancy; Z87.891 Personal history of nicotine dependence
CPT/HCPCS: 99282

== ENCOUNTER 2021-05-30 09:05 | Outpatient (CLI) | payer MEDICAID, SELFPAY ==
[2021-06-02 18:07] LABS: Chlamydia By Nucleic Acid AMP Negative (Negative)
[2021-06-02 21:21] LABS: Gonococcus By Nucleic Acid AMP Negative (Negative)
[2021-06-05 18:20] LABS: HPV Reflexed? NOT INDICATED
== END 2021-05-30 23:59 | disposition home or self-care (01) ==
LOC: LABSPEC 09:09
PROVIDERS: Visit Provider Obstetrics & Gynecology
DX: Z12.4 Encounter for screening for malignant neoplasm of cervix (principal); Z11.3 Encounter for screening for infections with a predominantly sexual mode of transmission
CPT/HCPCS: 87491; 87591; 88175; G0145

== ENCOUNTER 2021-06-13 07:26 | Day surgery (SDC) | payer MEDICAID, SELFPAY ==
[2021-06-12 10:56] LABS: Hematocrit 40.3 % (37-47); Hemoglobin 14.3 g/dL (12.0-15.0); Mean Corp Hgb Conc 35.5 g/dL (32-36); Mean Corpuscular Hgb 31.2 pg (27.0-32.0); Mean Corpuscular Volume 87.8 fL (81-99); Mean Platelet Vol. 9.5 fl (6.2-12.0); Platelet Count 292 K/mm3 (150-450); RBC Distribution Width CV 13.2 % (11.6-14.6); RBC Distribution Width SD 42.2 fl (35.1-43.9); Red Blood Count 4.59 M/mm3 (4.2-5.4); White Blood Count 7.3 K/mm3 (4.4-11.0)
[2021-06-13] VITALS (9 sets, daily range): BP systolic 126–165; BP diastolic 84–108; PULSE 72–116; RESP 16–18; TEMP 36.4–36.9; O2SAT 95–99; BMI 48.9
--- NOTE | 2021-06-13 | POC_PTH ---
PATIENT: HADLEY VELÁSQUEZ LOC: [facility] [place] U#:[id number] AGE/SX: 31/F ROOM: RE06/13/[address]: Dr. Harpal Dodd MD : 1990 BED: DIS: 06/13/2021 SPEC #: [id number] RECD: 06/13/21 11:04 STATUS: JOE REHaylie #: [id number] UMM: 06/13/21 00:[address]: Harpal Dodd DEPT: SURGICAL PATHOLOGY RECD BY: Buck Olivo ENTERED: 06/13/21 11:04 SP TYPE: PROD CONC OTHR DR: No Primary Care Phys Tissues: Product of conception, NOS Procedures: Surgery Specimen Level IV HEADER OPERATION: Suction dilation and curettage PRE-OP DIAGNOSIS: Missed TISSUE SUBMITTED: Products of conception MICROSCOPIC DIAGNOSIS Endometrium, curettage: Chorionic villi, decidualized stroma and trophoblastic cells consistent with products of conception. AM:fei 06/16/2021 MICROSCOPIC DESCRIPTION Slides are reviewed. GROSS DESCRIPTION Received in fixative is one container labeled with the patient's name and designated products of conception. The specimen consists of multiple pieces of pink-vargas soft tissue that in aggregate measure 6 x 6 x 1 cm. tissue is not identified. Manager Er tissue is submitted in three cassettes. / SJ:rg 06/13/2021 TC:5 CPT: 21930
--- NOTE | 2021-06-13 07:37 | HP.PCM.OB_ITS ---
History and Physical Date of Admission: 06/13/21 Cari Flores, a 31 year old female 2 0 4 0 2, presents for Suction D and C on 06/13 -- Cari is here today for D&C for missed . . MEDICATIONS HISTORY: Current medications prescribed by our practice are: 1. aspirin 81 mg tablet,delayed release, 1 PO QD 2. labetalol 200 mg tablet, 1 PO BID Patient is also takin. Vitamin 27 mg iron-0.8 mg tablet, qd ALLERGIES: Penicillins, Hives and/or rash, Sulfa (Sulfonamide Antibiotics) and Hives and/or rash Infections - Chicken pox Illnesses - depression Accidents - None Hospitalizations - Childbirth and see surgery Review of Systems: GENERAL - Denies fever, or chills SKIN - Denies skin changes EYES - Denies visual changes EARS - Denies difficulty hearing NOSE - Denies nasal congestion or bleeding MOUTH - Denies sore throat or difficulty swallowing NECK - Denies pain or swelling RESPIRATORY - Denies shortness of breath or wheezing CARDIOVASCULAR - Denies palpitations or chest pain GASTROINTESTINAL - Denies nausea, vomiting, diarrhea, constipation GENITOURINARY - Denies dysuria, frequency of urination, incontinence of urine MUSCULOSKELETAL - Denies joint or muscle pain NEUROLOGICAL - Denies localized numbness or weakness PSYCHIATRIC - Denies depression or anxiety ENDOCRINE - Denies heat or cold intolerance, weight loss or gain HEMATO-IMMUNOLOGIC - Denies excessive bleeding with cuts SOCIAL HISTORY: Alcohol Use - denies drinking Smoking - Smokes--advised to quit and 1 pack per 4 days Diet - high in sweets and needs improvement Lifestyle - moderate stress lifestyle Exercise - minimal Seat Belt Use - always Employer - [employer] 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 Illicit Drug Use - denies use of street drugs Sexual Activity - [employer] PARTNER and [facility] Residence - lives with Fiance Hours Worked - 40 hours per week Spouse-Sig Other Name - Steve Reyesard Spouse-Sig Other Occupation - cook Children Name(s) - April Mchugh Control - FAMILY HISTORY: MENSTRUAL HISTORY: LMP Known?- DefiniteAmount/Duration - 4 days, Regularity - Regular, Frequency - monthly days, LMP - 03/31/21 PAST PREGNANCIES: Total Pregnancies - 7; Full Term Pregnancies - 2; Premature - 0; Abortions, Induced - 0; Abortions, Spontaneous - 4; Ectopics - 0; Multiple Births - 0; Living Children - 2 SURGICAL HISTORY: 1. 05/27/2013 D and C ; - 2. 10/19/2017 D and C ; - PHYSICAL EXAM BP- 176/100 Sitting, Right arm, large cuff Weight- 327.84625 lbs Height- 68 inch BMI:[id number] CONSTITUTIONAL - NAD, well nourished, and well developed SKIN - No rash, lesions, or ulcers HEENT - Normocephalic, PERRLA, EOMI NECK - No nodes, no nuchal rigidity and thyroid normal size and texture LYMPH NODES - Palpation of lymph nodes in neck and groins within normal limits EXTREMITIES - No edema or calf tenderness NEUROLOGICAL - Cranial nerves II-XII grossly intact PSYCHIATRIC - A and O to time, place, person, mood and affect External Genital Vagina - non-tender without lesions Urethra/Urethral Meatus - non-tender Bladder - non-tender Vagina - vaginal fulton are pink and moist without loss of rugae and no evidence of atropy Cervix - without cervical motion tenderness and has normal size and features without evident lesions Uterus - 5-6 cm in size, mobile and nontender Adnexa - clear without masses or tenderness ASSESSMENT/PLAN: 1. Missed Previously with ultrasound with IUP with heart tones. Now with repeat ultrasound no heart tones noted at 7 weeks, diagnostic of missed Educated patient on findings, patient asymptomatic. Very tearful. E ducated patient on expectant management versus medical management versus surgical management risk benefits alternatives. Patient elects for surgical management via D&C
[2021-06-13] MEDS: Lactated Ringers 1,000 ML 120 ML IV ×2 (08:09→10:28)
--- NOTE | 2021-06-13 10:01 | PCM.DC ---
Discharge Instructions Diet Discharge Diet: No restrictions Activity Discharge Activity: Return to Normal Activity, May Drive and May Shower May resume sexual activity in: 4-6 weeks Weight Bearing Status: Weight bearing as tolerated Dressing / Incision Call your doctor if your incision/area has: Continuous Slow Oozing and Foul Smelling Discharge Call your doctor if you observe: Fever of 101 or Higher, Shortness of breath and Chest pain Follow Up Care Please Follow Up With: Harpal Dodd MD When: 2 weeks postoperatively Test Results: Test results from this visit will be discussed in further detail at your follow-up appointment, if applicable. Discharge Plan Admission Attending Provider: Harpal Dodd Primary Care Provider: Care PhysicianAlmaz Primary Discharge Orders/Prescriptions Prescriptions: No Action 400 mcg tablet,chewable 2 tab PO DAILY Qty: 60 RF: 0 labetalol 100 mg tablet 100 mg PO BID Qty: 60 RF: 0 Disposition Discharge Orders: Discharge Patient (Routine); Ordered 06/13/21 Ordered By: Dr. Harpal Dodd
--- NOTE | 2021-06-13 10:01 | PCM.OPRPT ---
Report of Operation Date of Procedure: 06/13/21 Pre-Operative Diagnosis: Missed Post-Operative Diagnosis: Missed Surgery/Procedure Performed:: Suction dilation and curettage Description of Surgical Findings:: Procedure: Suction dilation and curettage Surgeon: Harpal Dodd MD Anesthesia: General EBL: 20 cc Urine output: 25 cc IV fluids: 600 cc Complications none Specimen: Products of conception Findings: Cervix closed no vaginal bleeding noted. Moderate amounts of products of conception Consent: Patient diagnosed with missed and elects for suction dilation and curettage. Patient understands the risk of the procedure include but are not limited to visceral or vascular injury, prolonged hospitalization, blood loss and need for transfusion, reoperation. Patient stated understanding and wished to proceed. All questions were answered and consent was signed. Procedure: Patient was brought back to the OR where general anesthesia was found to be adequate. 200 mg of doxycycline IV were given for infection prophylaxis. Patient was prepared and draped in a dorsolithotomy position with yellowfin stirrups. A weighted speculum is placed in the posterior aspect of the vagina and cervical dilators were used to dilate the cervix. 8 mm suction curettage was used under direct visualization. Above findings were noted. Products of conception sent to pathology. Good hemostasis was noted. All counts were correct x2. Patient tolerated the procedure well and was brought to recovery in stable condition.
== END 2021-06-13 12:01 | disposition home or self-care (01) ==
LOC: SDC 07:27 → AC 07:27
PROVIDERS: Referring Provider Obstetrics & Gynecology; Visit Provider Obstetrics & Gynecology
PROC: (CPT 59820; principal; 2021-06-13 08:45)
DX: O02.1 Missed abortion (principal); O99.331 Smoking (tobacco) complicating pregnancy, first trimester; O16.1 Unspecified maternal hypertension, first trimester; F17.200 Nicotine dependence, unspecified, uncomplicated; Z79.899 Other long term (current) drug therapy
CPT/HCPCS: 59820; 01965; 36415; 85027; 86850; 86870; 86900; 86901; 87426; 88305; 90384; C9803; J7120; J2405; J2790

== ENCOUNTER 2021-12-05 16:35 | Emergency (ER) | payer MEDICAID, SELFPAY ==
[2021-12-05 16:36] VITALS: BP 158/114; PULSE 94; RESP 16; TEMP 36.8; O2SAT 97; BMI 48.6
[2021-12-05 16:59] VITALS: BP 159/104
--- NOTE | 2021-12-05 17:16 | RAD_ITS ---
STUDY: XR Wrist Min 3 Views REASON FOR EXAM: Female, 31 years old. Trauma, Pain TECHNIQUE: XR Wrist Min 3 Views RIGHT COMPARISON: None FINDINGS: There are no acute findings of the visualized distal radius and ulna. There are no acute findings of the radiocarpal articulation. Normal distal radioulnar articulation. Normal carpal bones. Normal carpal articulations. There are no acute findings of the carpometacarpal articulation of the thumb. Normal second through fifth carpometacarpal articulations. There are no acute findings of the visualized metacarpal bones. The soft tissue structures are unremarkable. RAD/Wrist min 3 Views IMPRESSION: There are no acute findings of the wrist. Electronically Signed: Heriberto Zamarripa MD at 17:38 EDT ,
--- NOTE | 2021-12-05 17:17 | EDS_ITS ---
HPI History of Present Illness Chief Complaint: Fall Narrative Narrative: Patient presents to the emergency department status post fall. She states that she was carrying her 5-year-old to her 's car. She twisted her left ankle and fell while she was caring him. She now has right wrist pain that is worse with movement, but mainly left ankle pain that is worse with weightbearing and walking. She states she was able to take a few steps, but complains of pain and swelling in her left ankle mainly. She did not hit her head when she fell. She denies other injuries except for her right wrist and left ankle. No loss of consciousness. She is right-hand dominant. She may have sustained a small abrasion to the palm, but is mainly concerned about her left ankle. [facility] Medical History Alcohol use Anxiety Depression Easy bruising Excessive bleeding Former smoker Heartburn Hypertension Migraine headache Shortness of breath on exertion Home Medications labetalol 100 mg tablet 100 mg PO BID #60 tabs 05/25/21 [Rx Last Taken Unknown] vitamins no.144-folic acid 400 mcg chewable tablet () 2 tab PO DAILY #60 tabs 05/25/21 [Rx Last Taken Unknown] Allergy/AdvReac Type Severity Reaction Status Date / Time Penicillins Allergy Hives Verified 12/05/21 16:36 Sulfa (Sulfonamide Allergy Hives Verified 12/05/21 16:36 Antibiotics) Surgical History Hx of dilation and curettage Social History Smoking Status: Former smoker substance use type: does not use ROS ROS ED ROS Narrative Constitutional: No fever, no chills. HEENT: No sore throat. No neck pain. No loss of vision. No rhinorrhea. Cardiovascular: No chest pain. No palpitations. No pedal edema. Respiratory: No cough, no shortness of breath. Abdominal: No abdominal pain. No nausea. No vomiting. Genitourinary: No dysuria. No hematuria. Musculoskeletal: No myalgias. Right wrist pain. Left ankle pain and swelling, worse with weightbearing and movement. Neurologic: No headaches. No dizziness. No lightheadedness. Skin: No rash. No change in color. Psychiatric: No depression. No anxiety. EXAM Physical Exam Narrative Exam Narrative: Afebrile. Vital signs noted. HEENT: Normocephalic. Atraumatic. PERRL, EOMI. Neck soft and supple. No point tenderness or step off. Cardiovascular: Regular rate and rhythm. No murmurs, rubs, or gallops appreciated. Respiratory: No tachypnea. Lungs clear to auscultation bilaterally. Gastrointestinal: Abdomen soft, nontender, with normoactive bowel sounds. No rebound or guarding. Neurological: Awake. Alert. Nonfocal, nonlateralizing. Skin: No rash. Normal color. No pallor. Musculoskeletal: No pedal edema. Full range of motion of right wrist. Mild diffuse tenderness to palpation distal radius. Palpable radial pulse. Uninjured at elbow and above. Able to abduct and abduct fingers. Able to oppose thumb. Good capillary refill. Diffuse tenderness to palpation with mild swelling left ankle. No palpable Achilles tendon deficit. Palpable dorsalis pedis pulse. No proximal fibular head tenderness. Const Vital Signs: 12/05/21 16:36 12/05/21 16:56 12/05/21 16:59 Temperature 98.3 F Temperature Source Temporal Pulse Rate 94 Respiratory Rate 16 Respiratory Effort Normal Respiratory Depth Normal Respiratory Pattern Normal Blood Pressure 158/114 H 159/104 H Blood Pressure Mean 128 122 Pulse Ox 97 Oxygen Delivery Method Room Air Room Air MDM MDM MDM Narrative Medical decision making narrative: X-rays of the right wrist interpreted by myself shows no evidence of fracture. X-rays of the left ankle also interpreted by myself shows no evidence of fracture, there is mild soft tissue swelling consistent with ankle sprain. She was given ibuprofen for analgesia. She will be placed in an Aircast versus an Alfonso wrap and given crutches with teaching. She will continue ice and elevation at home. She declined splint/Velcro splint of her right wrist stating it is fine. She will continue ibuprofen at home. IFISH to be discharged safely home with follow-up. Return instructions were reviewed. Disposition is discharged home in stable condition. Radiography Diagnostic Testing: Clinical Impression(s) from Imaging Studies Wrist X-Ray 12/05/21 17:16 IMPRESSION: There are no acute findings of the wrist. Electronically Signed: Heriberto Zamarripa MD at 17:38 EDT , Ankle X-Ray 12/05/21 17:20 IMPRESSION: There is soft tissue swelling. Electronically Signed: Heriberto Zamarripa MD at 17:38 EDT , Discharge Plan Triage Chief Complaint: Fall ED Provider: Guanaco Zaman Dx/Rx/DC Orders Clinical Impression: Fall, Left ankle sprain, Right wrist sprain, Abrasion hand Instructions: ED Abrasion, ED Wrist Sprain, ED Ankle Sprain (Adult) Prescriptions: No Action 400 mcg tablet,chewable 2 tab PO DAILY Qty: 60 0RF labetalol 100 mg tablet 100 mg PO BID Qty: 60 0RF Stand Alone Forms: ED Work / School Excuse Primary Care Provider: Care Physician,No Primary Referrals: Care Physician,No Primary [Primary Care Provider] - Disposition Disposition: Home, Self Care
--- NOTE | 2021-12-05 17:20 | RAD_ITS ---
STUDY: XR Ankle Min 3 Views REASON FOR EXAM: Female, 31 years old. ANKLE PAIN TECHNIQUE: XR Ankle Min 3 Views LEFT COMPARISON: None. FINDINGS: Normal visualized distal tibia and fibula. Normal medial and lateral malleoli. Normal tibiotalar articulation and ankle mortise. The visualized subtalar, talonavicular, calcaneocuboid and tarsal articulations are normal. Normal talus, calcaneus, and tarsal bones. There is soft tissue swelling around the ankle. RAD/Ankle min 3 Views IMPRESSION: There is soft tissue swelling. Electronically Signed: Heriberto Zamarripa MD at 17:38 EDT ,
[2021-12-05] MEDS: Ibuprofen 400 MG Tablet 800 MG PO (17:41)
== END 2021-12-05 18:36 | disposition home or self-care (01) ==
PROVIDERS: Emergency Provider Emergency Medicine; Visit Provider Emergency Medicine
DX: S63.501A Unspecified sprain of right wrist, initial encounter (principal); S93.402A Sprain of unspecified ligament of left ankle, initial encounter; S60.511A Abrasion of right hand, initial encounter; I10 Essential (primary) hypertension; Z87.891 Personal history of nicotine dependence; W01.0XXA Fall on same level from slipping, tripping and stumbling without subsequent striking against object, initial encounter
CPT/HCPCS: 73110; 73610; 99284

== ENCOUNTER 2022-02-15 10:56 | Emergency (ER) | payer MEDICAID, SELFPAY ==
[2022-02-15 10:57] VITALS: BP 180/104; PULSE 90; RESP 16; TEMP 35.9; O2SAT 96; BMI 48.6
--- NOTE | 2022-02-15 11:07 | EX.ED.DYSGE1 ---
HPI <TAWNYA Foster - Last Filed: 02/15/22 11:40> History of Present Illness Chief Complaint: Sore Throat Narrative Narrative: 31-year-old female presents with 1 week history of sore throat. She mainly feels pressure in her left ear and pain in the left side of the throat. It is worse at night and she feels like there is a lot of mucus running down her throat. She has no fever or chills, cough, chest pain or shortness of breath. PFSH <TAWNYA Foster - Last Filed: 02/15/22 11:40> PFSH Medical History Alcohol use Anxiety Depression Easy bruising Excessive bleeding Former smoker Heartburn Hypertension Migraine headache Shortness of breath on exertion Home Medications labetalol 100 mg tablet 100 mg PO BID #60 tabs 05/25/21 [Rx Last Taken Unknown] vitamins no.144-folic acid 400 mcg chewable tablet () 2 tab PO DAILY #60 tabs 05/25/21 [Rx Last Taken Unknown] Allergy/AdvReac Type Severity Reaction Status Date / Time Penicillins Allergy Hives Verified 12/05/21 16:36 Sulfa (Sulfonamide Allergy Hives Verified 12/05/21 16:36 Antibiotics) Surgical History Hx of dilation and curettage Social History Smoking Status: Former smoker substance use type: does not use ROS <TAWNYA Foster - Last Filed: 02/15/22 11:40> ROS ED ROS Narrative Constitutional: Negative for fever, chills, malaise. Eyes: Negative for visual change. ENT: Positive for sore throat, ear pain. CVS: Negative for palpitations, chest pain, syncope. Respiratory: Negative for shortness of breath, cough, orthopnea. GI: Negative for abdominal pain, nausea, vomiting, diarrhea. : Negative for dysuria, hematuria or frequency. Neuro: Negative for headache, motor/sensory dysfunction. Skin: Negative for rash, abscess, or wound. Musc: Negative for joint pain, swelling, trauma. Heme: Negative for easy bruising, bleeding, lymphadenopathy. EXAM <TAWNYA Foster - Last Filed: 02/15/22 11:40> Physical Exam Narrative Exam Narrative: CONST: Patient sitting in no acute distress. EYES: Normal inspection. ENT: Normal oropharynx with midline uvula, sublingual space is soft, normal dentition, moist mucous membranes. Nares clear. Cerumen with normal TMs bilaterally. NECK: Normal inspection, no meningismus. Trachea midline, no masses or lymphadenopathy. RESP: No respiratory distress, CTAB. CVS: Regular rate and rhythm, no murmur, no gallop. SKIN: Color normal, no rash, warm, dry, intact. EXTREMITIES: Normal appearance, no pedal edema. NEURO: Oriented x4. PSYCH: Normal affect. Const Vital Signs: 02/15/22 10:57 Temperature 96.7 F L Temperature Source Temporal Pulse Rate 90 Respiratory Rate 16 Blood Pressure 180/104 H Blood Pressure Mean 129 Pulse Ox 96 Oxygen Delivery Method Room Air <Dr. Benji Vazquez MD - Last Filed: 02/15/22 16:01> Physical Exam Const Vital Signs: 02/15/22 10:57 Temperature 96.7 F L Temperature Source Temporal Pulse Rate 90 Respiratory Rate 16 Blood Pressure 180/104 H Blood Pressure Mean 129 Pulse Ox 96 Oxygen Delivery Method Room Air MDM <TAWNYA Foster - Last Filed: 02/15/22 11:40> [facility] Narrative Medical decision making narrative: Patient has rhinorrhea, ear pressure and sore throat as well as mucus drainage. She appears well nontoxic. BP 180/104 with otherwise normal vital signs. She does have a history of hypertension and will address this with her doctor but has no acute symptoms. Her HEENT exam is overall unremarkable. I discussed she should continue symptomatic treatment for viral URI with return precautions given and she was discharged in stable condition. <Dr. Benji Vazquez MD - Last Filed: 02/15/22 16:01> [facility] Treatment and Re-Evaluation Narrative: I have personally performed a face to face assessment of the patient and have reviewed the ELKE Note. I performed a substantive portion of the visit including all aspects of the following. My teixeira findings include: History: Patient's had some runny nose sore throat. No real cough. She has had some left ear popping but not pain. No fever. No known exposure to strep. Exam: Patient is awake alert nontoxic. Voice is normal. Posterior pharynx shows some minimal erythema but no exudate. No asymmetry or swelling. She handles secretions normally. No dental pain. No external swelling. She has no lymphadenopathy. There is a small amount of fluid in her left tympanic membrane but is not red or inflamed. Lungs are clear. Medical Decision Making: Patient can use [id number] meds. I do not see indication for antibiotics. She is negative Centor criteria. Discharge Plan Triage Chief Complaint: Sore Throat ED Midlevel Provider: Evita Gomes ED Provider: Benji Vazquez Dx/Rx/DC Orders Clinical Impression: Pharyngitis Instructions: Self-Care for Sore Throats, ED URI, Viral, No Abx (Adult) Prescriptions: No Action 400 mcg tablet,chewable 2 tab PO DAILY Qty: 60 0RF labetalol 100 mg tablet 100 mg PO BID Qty: 60 0RF Primary Care Provider: Care Physician,No Primary Referrals: Care Physician,No Primary [Primary Care Provider] - Activity Restrictions/Additional Instructions: Take Tylenol or ibuprofen every 6 hours as needed for pain. He can use nasal saline sprays or decongestants [id number]. Follow-up with your doctor about your blood pressure. Disposition Disposition: Home, Self Care Discharge Date/Time: 02/15/22 11:40
== END 2022-02-15 11:40 | disposition home or self-care (01) ==
LOC: ED 11:30
PROVIDERS: Emergency Provider Emergency Medicine; Visit Provider Emergency Medicine
DX: J02.9 Acute pharyngitis, unspecified (principal); Z87.891 Personal history of nicotine dependence
CPT/HCPCS: 99282

== ENCOUNTER → 2022-08-19 | Outpatient (CLI) | payer MEDICAID, SELFPAY ==
[2022-08-19 10:21] LABS: Hematocrit 39.8 % (37-47); Hemoglobin 14.1 g/dL (12.0-15.0); Mean Corp Hgb Conc 35.4 g/dL (32-36); Mean Corpuscular Hgb 31.2 pg (27.0-32.0); Mean Corpuscular Volume 88.1 fL (81-99); Mean Platelet Vol. 9.3 fl (6.2-12.0); Platelet Count 291 K/mm3 (150-450); RBC Distribution Width CV 13.3 % (11.6-14.6); RBC Distribution Width SD 42.4 fl (35.1-43.9); Red Blood Count 4.52 M/mm3 (4.2-5.4); White Blood Count 6.1 K/mm3 (4.4-11.0)
[2022-08-19 10:58] LABS: Hemoglobin A1c 5.1 % (3.8-5.6)
[2022-08-19 12:03] LABS: Anion Gap 7 (5-15); BUN 9 mg/dL (7-18); BUN/Creat Ratio 12.1 RATIO (10-20); Calcium,Total 9.1 mg/dL (8.5-10.1); Chloride 108 mmol/L (98-107); Creatinine, Serum 0.74 mg/dL (0.55-1.02); EST Glomerular Filtration Rate 96 mL/min (>60); Est Glom Filt Rate - Afr Amer 116 mL/min (>60); Estradiol 56.9 pg/mL; Follicle Stimulating Hormone 8.7 mIU/mL; Glucose 105 mg/dL (74-106); Luteinizing Hormone 5.5 mIU/mL; Potassium 3.7 mmol/L (3.5-5.1); Sodium Level 138 mmol/L (136-145); T4 Free Direct 1.08 ng/dL (0.76-1.46); Thyroid Stim Hormone (TSH) 1.66 uIU/mL (0.358-3.74)
[2022-08-25 14:09] LABS: Testosterone, % Free 1.24 % (0.50-2.80); Testosterone, Free 0.51 ng/dL (0.10-0.85); Testosterone, Total 41 ng/dL (8-60)
== END | disposition home or self-care (01) ==
LOC: WOBLAB 09:59
PROVIDERS: Visit Provider Obstetrics & Gynecology
DX: N97.9 Female infertility, unspecified (principal)
CPT/HCPCS: 36415; 80048; 82670; 83001; 83002; 83036; 84402; 84403; 84439; 84443; 85027